=== PATIENT | female | born 1970 | race Hispanic/Latino ===

== ENCOUNTER 2017-03-24 12:58 | Emergency (ER) | payer OTHER ==
[2017-03-24 12:58] VITALS: BMI 24.1
[2017-03-24 13:05] VITALS: BP 128/93; PULSE 102; RESP 18; TEMP 98; O2SAT 98
--- NOTE | 2017-03-24 13:32 | C.PDOC ---
History Of Present Illness 46 yr old female with history of DJD, presents to the ER with complaints of right sided neck pain for the past 4-5 days. Patient denies new trauma, injury, vision changes, nausea, vomiting, headache, back pain, weakness or numbness. Time Seen by Provider: 03/24/17 13:21 Chief Complaint (Nursing): Back Pain History Per: Patient History/Exam Limitations: no limitations Onset/Duration Of Symptoms: Days (4-5) Current Symptoms Are (Timing): Still Present Past Medical History Reviewed: Historical Data, Nursing Documentation, Vital Signs Vital Signs: Last Vital Signs Temp 98 F 03/24/17 13:04 Pulse 102 H 03/24/17 13:04 Resp 18 03/24/17 13:04 BP 128/93 H 03/24/17 13:04 Pulse Ox 98 03/24/17 13:42 - Medical History PMH: Anxiety, Back Problems, Bipolar Disorder, Depression, HTN, Chronic Pain ( Back Pain) Surgical History: Tonsillectomy Family History: States: No Known Family Hx - Social History Hx Tobacco Use: Yes Hx Alcohol Use: No Hx Substance Use: No - Immunization History Hx Tetanus Toxoid Vaccination: No Hx Influenza Vaccination: Yes Hx Pneumococcal Vaccination: No Review Of Systems Except As Marked, All Systems Reviewed And Found Negative. Eyes: Negative for: Vision Change Gastrointestinal: Negative for: Nausea, Vomiting Musculoskeletal: Positive for: Neck Pain (Right sided ). Negative for: Back Pain Neurological: Negative for: Weakness, Numbness, Headache Physical Exam - Physical Exam Appears: Non-toxic, No Acute Distress Skin: Warm, Dry, No Rash Head: Atraumatic, Normacephalic Oral Mucosa: Moist Neck: Normal ROM, No Midline Cervical Tenderness, Paracervical Tenderness ( Right ), No Step Off Deformity, Supple Chest: Symmetrical, No Tenderness Cardiovascular: Rhythm Regular, No Murmur Respiratory: Normal Breath Sounds, No Rales, No Rhonchi, No Stridor, No Wheezing Back: Paraspinal Tenderness (Right ) Extremity: Normal ROM, No Swelling Neurological/Psych: Oriented x3, Normal Speech, Normal Motor ED Course And Treatment O2 Sat by Pulse Oximetry: 98 Medical Decision Making Medical Decision Making: PLAN: * Toradol IM * 146: pain improved in er. suspect chronic djd, pt states due to see specialist. no new trauma. Disposition - Disposition Referrals: Aaron Mckeon MD [Non-Staff] - Disposition: HOME/ ROUTINE Disposition Time: 13:40 Condition: STABLE Additional Instructions: follow up with specialist. return to er with worsening symptoms or concern. Prescriptions: Naproxen [Naprosyn] 500 mg PO BID PRN #14 tablet PRN Reason: Pain, Mild (1-3) Instructions: Cervical Strain (DC), Cervical Radiculopathy (ED), Muscle Spasm ( ED) Forms: [employer] (Cape Verdean) - Clinical Impression Clinical Impression: Neck pain - Scribe Statement The provider has reviewed the documentation as recorded by the Saturninoibe Neha Rosado Provider Attestation: All medical record entries made by the Saturninoibe were at my direction and personally dictated by me. I have reviewed the chart and agree that the record accurately reflects my personal performance of the history, physical exam, medical decision making, and the department course for this patient. I have also personally directed, reviewed, and agree with the discharge instructions and disposition.
== END 2017-03-24 13:59 | disposition home or self-care (01) ==
LOC: C.ER 12:58
DX: M54.2 Cervicalgia (principal)
CPT/HCPCS: 96372; 99284; J1885

== ENCOUNTER 2017-04-16 10:58 | Day surgery (SDC) | payer OTHER ==
[2017-04-09 09:38] VITALS: BMI 27.4
[2017-04-16] MEDS ORDERED: ceFAZolin IV 1 gm in Dextrose 1 GM/50 ML BAG IVPB ONE (11:56)
[2017-04-16] MEDS ORDERED: Lactated Ringer's 1,000 ML IV ONE (13:47)
[2017-04-16] MEDS ORDERED: Propofol 10 mg/ml Inj (20 ML) ONE (13:58)
[2017-04-16] MEDS ORDERED: Midazolam 2 MG/2 ML VIAL ONE (13:58)
[2017-04-16] MEDS: HYDROmorphone 0.5 mg/0.5 ml ISec IVP PRN ×2 (14:31→14:49)
[2017-04-16] MEDS ORDERED: HYDROmorphone 0.5 mg/0.5 ml ISec ONE (14:31)
--- NOTE | 2017-04-16 14:36 | PCM.SURG1 ---
Surgeon's Initial Post Op Note - Surgeon's Notes Surgeon: dr riggs Wall Attendant: NONE Type of Anesthesia: General LMA Anesthesia Administered By: DR LOPEZ Pre-Operative Diagnosis: 46 yr with AUB R/o polyp Operative Findings: see the op reort Post-Operative Diagnosis: same with small polyp Operation Performed: myasure , d &c, hyterscopy Specimen/Specimens Removed: ecc. emc. polyp Estimated Blood Loss: EBL {In ML}: 20 Blood Products Given: N/A Drains Used: No Drains Post-Op Condition: Good Date of Surgery/Procedure: 04/16/17 Time of Surgery/Procedure: 14:00
[2017-04-16 14:43] VITALS: TEMP 97.3; O2SAT 100
[2017-04-16 15:47] VITALS: BP 124/72; PULSE 64; RESP 18
--- NOTE | 2017-04-17 02:15 | OP ---
PREOPERATIVE DIAGNOSIS: A 46-year-old, 2, para 0, abnormal uterine bleeding, rule out polyp. POSTOPERATIVE DIAGNOSIS: A 46-year-old, 2, para 0, abnormal uterine bleeding with a small polyp. SURGEON: William Welch MD KNITTING TESTER: None. TYPE OF ANESTHESIA: General anesthesia. ANESTHESIOLOGIST: Dr. Plaza. COMPLICATION: None. ESTIMATED BLOOD LOSS: 20 mL. DEFICIT: 250 mL. PROCEDURE: MyoSure, dilatation and curettage, cystoscopy. DESCRIPTION OF PROCEDURE: After informed consent was obtained, the patient was brought to the operating room, placed on the table where general anesthesia was given. When anesthesia was found to be sufficient, she was prepped and draped in normal sterile fashion. Examination of the uterus revealed to be 8-week size. No pelvic or adnexal masses under *------*. Anterior lip of the cervix was grasped with a tenaculum, gentle dilatation of the cervix was done. Then, *------* was introduced, found to be a small polyp on the lower uterine segment, the pictures were taken and the MyoSure was used to take out the polyp. After that, the sharp curettage of the endometrium was done. ECC was done. Then, the tenaculum was taken out. Anterior lip of the cervix was bleeding, so stitch was placed. The patient tolerated the procedure well. Lap, sponge, and instrument counts were correct x2. The patient will follow up in the office in 2 weeks. William Welch MD
== END 2017-04-16 16:34 | disposition home or self-care (01) ==
LOC: C.SDS 10:58
PROVIDERS: ATTEND Obstetrics & Gynecology
DX: N84.0 Polyp of corpus uteri (principal); N93.9 Abnormal uterine and vaginal bleeding, unspecified
CPT/HCPCS: 58558; 88305; J0690; J1170; J2250; J2704; J3010; J7120

== ENCOUNTER 2017-05-22 13:21 | Emergency (ER) | payer MEDICAID, OTHER ==
[2017-05-22 13:22] VITALS: BMI 27.4
[2017-05-22 13:30] VITALS: O2SAT 98
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
--- NOTE | 2017-05-22 14:41 | CT ---
PROCEDURE: CT HEAD WITHOUT CONTRAST. HISTORY: head injury, headache COMPARISON: None available. TECHNIQUE: Axial computed tomography images were obtained through the head/brain without intravenous contrast. Radiation dose: Total exam DLP = 868 mGy-cm. This CT exam was performed using one or more of the following dose reduction techniques: Automated exposure control, adjustment of the mA and/or kV according to patient size, and/or use of iterative reconstruction technique. FINDINGS: HEMORRHAGE: No intracranial hemorrhage. BRAIN: No mass effect or edema. No atrophy or chronic microvascular ischemic changes. VENTRICLES: Unremarkable. No hydrocephalus. CALVARIUM: Unremarkable. PARANASAL SINUSES: Unremarkable as visualized. No significant inflammatory changes. MASTOID AIR CELLS: Unremarkable as visualized. No inflammatory changes. OTHER FINDINGS: None. IMPRESSION: No acute intracranial abnormality. If focal neurologic deficit persists, consider MRI.
--- NOTE | 2017-05-22 14:50 | CT ---
CT cervical spine History: Neck pain. Trauma. Comparison: None available. Technique: Multiple contiguous axial images were performed through the cervical spine without the use of intravenous contrast. Subsequently, sagittal and coronal reformatted images were obtained. Findings: Straightening of the normal cervical lordosis. Prominent disc space narrowing with endplate sclerosis as well as anterior and posterior osteophytosis at the C6-7 level. Smaller multilevel posterior disc osteophyte complexes most prominent at the C3-4 and C4-5 levels with associated anterior osteophytosis at these levels. Anterior osteophytosis at the C5-6 level. Multilevel uncovertebral joint and facet hypertrophy most prominent at the C3 seen through C5 levels. Narrowing at the atlantodental interval with sclerosis and bony hypertrophy. Impression: Prominent degenerative changes. If pain persists, consider MRI.
[2017-05-22 15:29] VITALS: BP 110/81; PULSE 81; RESP 18; TEMP 97.8
== END 2017-05-22 15:55 | disposition home or self-care (01) ==
LOC: C.ER 13:21
DX: S09.90XA Unspecified injury of head, initial encounter (principal); S13.4XXA Sprain of ligaments of cervical spine, initial encounter; Y04.0XXA Assault by unarmed brawl or fight, initial encounter